=== PATIENT | male | born 1990 | race Caucasian/White ===

== ENCOUNTER 2023-08-26 10:31 | Day surgery (SDC) | payer BC ==
[2023-08-25 10:39] VITALS: BMI 36.8
[2023-08-26] MEDS ORDERED: Oxymetazoline HCl 0.05% (30 ML BOT) ONE ×2 (11:44→12:30)
[2023-08-26] MEDS ORDERED: EPINEPHrine 1 MG/ML AMP ONE (12:30)
[2023-08-26] MEDS ORDERED: Lidocaine 1% (PF) 30 ML VIAL ONE (12:30)
[2023-08-26] MEDS ORDERED: Bacitracin Zinc Ointment 30 gm TUBE ONE (12:33)
[2023-08-26] MEDS ORDERED: Dexamethasone 20 MG/5 ML VIAL ONE (12:49)
[2023-08-26] MEDS ORDERED: Ondansetron PF 4 MG/2 ML Vial ONE (12:49)
[2023-08-26] MEDS ORDERED: PROPOFOL 200 MG/20 ML VIAL ONE (12:49)
[2023-08-26] MEDS ORDERED: Lidocaine 1% PF 5 ML VIAL ONE (12:49)
[2023-08-26] MEDS ORDERED: Rocuronium Bromide 10 MG/ML (10ML VIAL) ONE (12:49)
[2023-08-26] MEDS ORDERED: fentaNYL 50 mcg/mL 1 mL Vial ONE ×2 (13:00→14:10)
[2023-08-26] MEDS ORDERED: fentaNYL PF 100 MCG/2 ML SYRINGE ONE (13:00)
[2023-08-26] MEDS ORDERED: Hydrocodone-Acetamin 15 ML UDCUP ONE (15:18)
== END 2023-08-26 15:45 | disposition home or self-care (01) ==
LOC: SDC 10:31
PROVIDERS: ATTEND Specialist
PROC: 09TL8ZZ Resection of Nasal Turbinate, Via Natural or Artificial Opening Endoscopic (ICD-10-PCS; principal; 2023-08-26)
PROC: 09BM8ZZ Excision of Nasal Septum, Via Natural or Artificial Opening Endoscopic (ICD-10-PCS; principal; 2023-08-26)
DX: J34.2 Deviated nasal septum (principal); J34.3 Hypertrophy of nasal turbinates; G47.33 Obstructive sleep apnea (adult) (pediatric); Z98.890 Other specified postprocedural states; Z88.0 Allergy status to penicillin; Z79.899 Other long term (current) drug therapy
CPT/HCPCS: C1713; J0171; J1100; J2001; J2405; J2704; J3010